=== PATIENT | male | born 2000 | race Caucasian/White ===

== ENCOUNTER 2022-08-23 16:50 | Emergency (ER) | payer OTHER, SELFPAY ==
[2022-08-23 16:51] VITALS: BP 121/78; PULSE 58; RESP 16; TEMP 36.7; O2SAT 99; BMI 20.3
--- NOTE | 2022-08-23 17:10 | EKG12_ITS ---
Test Reason : DIZZINESS Blood Pressure : / mmHG Vent. Rate : 068 BPM Atrial Rate : 068 BPM P-R Int : 156 ms QRS Dur : 094 ms QT Int : 364 ms P-R-T Axes : 059 068 046 degrees QTc Int : 387 ms Normal sinus rhythm with sinus arrhythmia Nonspecific ST abnormality Abnormal ECG Confirmed by NIRMALA WEATHERS, SUN ([id number]), web editor DANNA ORANTES ([id number]) on 08/24/2022 2:47:33 PM Referred By: Confirmed By:SUN SILVESTRE MD
--- NOTE | 2022-08-23 17:11 | EX.ED.DYSGE1 ---
HPI History of Present Illness Chief Complaint: Dizziness Narrative Narrative: 21-year-old male, student at the [employer], denies significant past medical history states that he was sent in by his hi lift operator/primary care provider in [place]. He states he is here for an EKG because he has had near syncopal episodes whenever he works out over the last few months. He states the first time it happened, he felt very lightheaded, and nauseated. He felt as if he was going to pass out. He denies any prodromal chest pain or shortness of breath. His symptoms resolved, but he states he crashed for 4 hours. He denies any paresthesias with this. He exerted himself, he became near syncopal. He denies any recent nausea or vomiting episodes except for when he becomes near syncopal. He has not vomited, denies any diarrhea, no other symptoms. He thought nothing of it, but eventually called his hi lift operator who suggested that he present more urgently. He last worked out last week and was working out once a week and stated that it happens every time. [facility] Medical History no medical history Home Medications NK 08/23/22 [History Last Taken Unknown] Allergy/AdvReac Type Severity Reaction Status Date / Time No Known Allergies Allergy Verified 08/23/22 16:51 Social History Smoking Status: Never smoker ROS ROS ED ROS Narrative Constitutional: No fever, no chills. HEENT: No sore throat. No neck pain. No loss of vision. No rhinorrhea. Cardiovascular: No chest pain. No palpitations. No pedal edema. Near syncope when working out. Respiratory: No cough, no shortness of breath. Abdominal: No abdominal pain. Positive nausea when has vasovagal episode. No vomiting. No diarrhea. Genitourinary: No dysuria. No hematuria. Musculoskeletal: No myalgias. No arthralgias. Neurologic: No headaches. No dizziness. No lightheadedness. Skin: No rash. No change in color. Psychiatric: No depression. No anxiety. EXAM Physical Exam Narrative Exam Narrative: Afebrile. Vital signs noted. HEENT: Normocephalic. Atraumatic. PERRL, EOMI. Neck soft and supple. No point tenderness or step off. Cardiovascular: Regular rate and rhythm. No murmurs, rubs, or gallops appreciated. Respiratory: No tachypnea. Lungs clear to auscultation bilaterally. Gastrointestinal: Abdomen soft, nontender, with normoactive bowel sounds. No rebound or guarding. Neurological: Awake. Alert. Nonfocal, nonlateralizing. Skin: No rash. Normal color. No pallor. Musculoskeletal: No pedal edema. Full range of motion extremities. Const Vital Signs: 08/23/22 16:51 08/23/22 17:08 08/23/22 17:27 Temperature 98.0 F Temperature Source Temporal Pulse Rate 58 L Pulse Rate [Lying] 76 Pulse Rate [Sitting (for 1 minute prior to obtaining)] 68 Pulse Rate [Standing (for 1 minute prior to obtaining)] 87 Respiratory Rate 16 Respiratory Effort Normal Respiratory Pattern Normal Blood Pressure 121/78 H Blood Pressure [Lying] 108/59 L Blood Pressure [Sitting (for 1 minute prior to obtaining)] 115/69 Blood Pressure [Standing (for 1 minute prior to obtaining)] 107/68 Blood Pressure Mean 92 Blood Pressure Mean [Lying] 75 Blood Pressure Mean [Sitting (for 1 minute prior to obtaining)] 84 Blood Pressure Mean [Standing (for 1 minute prior to obtaining)] 81 Pulse Ox 99 Oxygen Delivery Method Room Air MDM MDM MDM Narrative Medical decision making narrative: In the differential diagnosis is exercise-induced orthostatic hypotension versus exercise intolerance versus bradycardia. As the patient was instructed, EKG was obtained and interpreted by myself. It demonstrates normal sinus rhythm with sinus arrhythmia at [address] changes. No STEMI. His QTC is normal at 387. Orthostatics were obtained and reviewed. They are negative for tachycardia or drop in systolic blood pressure greater than 20 points, and are normal. At this point in time, I feel he can be discharged safely home with follow-up. I do not feel that further laboratory work is indicated. Return instructions to the emergency department were reviewed. Disposition is discharged home in stable condition. Discharge Plan Triage Chief Complaint: Dizziness ED Provider: Sukumar Cruz Dx/Rx/DC Orders Clinical Impression: Near syncope, Exercise intolerance Instructions: ED Near-Fainting, Uncertain Cause Prescriptions: No Action NK Primary Care Provider: MERCY NORIEGA Referrals: [facility] Doctor,Out of [Non-Staff] - Disposition Disposition: Home, Self Care
[2022-08-23 17:27] VITALS: BP 107/68; BP 108/59; BP 115/69; PULSE 68; PULSE 76; PULSE 87
== END 2022-08-23 17:49 | disposition home or self-care (01) ==
PROVIDERS: Emergency Provider Emergency Medicine; Visit Provider Emergency Medicine
DX: R55 Syncope and collapse (principal); R42 Dizziness and giddiness
CPT/HCPCS: 93005; 99283